=== PATIENT | female | born 1985 | race Caucasian/White ===

== ENCOUNTER 2016-12-26 10:11 | Emergency (ER) | payer MEDICAID ==
[2016-12-26 10:13] VITALS: BP 124/76; PULSE 89; RESP 15; TEMP 98.7; O2SAT 99
--- NOTE | 2016-12-26 10:28 | PD ---
HPI . right inner thigh abscess x 4-5 days Chief Complaint: Skin Problem Time Seen by Provider: 10:27 Travel History International Travel<30 days: No Contact w/Intl Traveler<30days: No Traveled to known affect area: No History of Present Illness HPI 31-year-old female here with complaints of right inner thigh abscess that has been present for the past 4-5 days. Patient says that all of a sudden she started developing swelling in her inner thigh. She does not recall any injury or insect bite. She denies any fever or chills. She is primarily Vietnamese- speaking and her sister is translating for her. She tells me the abscess caused some pain in her lower abdomen. [facility] Past Medical History Medical History: Denies Significant Hx Social History Alcohol Use: No Tobacco Use: No Substance Use: No Allergies-Medications (Allergen,Severity, Reaction): Coded Allergies: No Known Allergies (Unverified , 12/26/16) Reported Meds & Prescriptions Reported Meds & Active Scripts Active Bactrim DS (Sulfamethoxazole-Trimethoprim) 800-160 Mg Tab 1 Tab PO BID Review of Systems General / Constitutional: No: Fever Eyes: No: Visual changes HENT: No: Headaches Cardiovascular: No: Chest Pain or Discomfort Respiratory: No: Shortness of Breath Gastrointestinal: No: Abdominal Pain Genitourinary: No: Dysuria Musculoskeletal: No: Pain Skin: Positive Other (abscess right inner thigh), No Rash Neurologic: No: Weakness Psychiatric: No: Depression Endocrine: No: Polydipsia Hematologic/Lymphatic: No: Easy Bruising Physical Exam Narrative GENERAL: AAO x 3, no acute distress, Well-nourished, well-developed patient. SKIN: Warm and dry. No visible rashes or bruising. right inner thigh with 5 cm induration with zone of inflammation extending additional 3 cm, center with small 1 cm area of fluctuance. no visible drainage present HEAD: Normocephalic and atraumatic. EYES: No scleral icterus. No injection or drainage. ENT: No nasal drainage noted. Mucous membranes pink. Airway patent. NECK: Supple, trachea midline. No JVD. CARDIOVASCULAR: Regular rate and rhythm without murmurs, gallops, or rubs. RESPIRATORY: Breath sounds equal bilaterally. No accessory muscle use. No rhonchi or rales. GASTROINTESTINAL: Abdomen soft, non-tender, nondistended. no rebound or guarding EXTREMITIES: No cyanosis or edema. BACK: No obvious deformity. NEURO: CN II-12 intact, PSYCH: AAO x 3, normal affect. Data Data Last Documented VS Vital Signs Date Time Temp Pulse Resp B/P (MAP) Pulse Ox O2 Delivery O2 Flow Rate FiO2 12/26/16 10:13 98.7 89 15 124/76 (92) 99 Orders Orders Lidocaine 1% Inj (50 Ml) (Xylocaine 1% I (12/26/16 10:45) Ed Urine Pregnancytest Poc (12/26/16 10:35) Wound Culture And Gram Stain (12/26/16 10:37) Hydromorphone (Dilaudid) (12/26/16 11:00) MDM Medical Decision Making Medical Screen Exam Complete: Yes Emergency Medical Condition: Yes Medical Record Reviewed: Yes Differential Diagnosis Abscess, cellulitis, less likely shingles Narrative Course 31-year-old female here with a right thigh abscess. On examination she is abscess that is ready for incision and drainage. Dr. Caba has also assessed the patient. Patient gave verbal consent to abscess drainage. She tolerated without incident. Provide her with Bactrim to cover for MRSA. I recommend follow-up in 48 hours for recheck of abscess and packing change. We discussed the signs of infection and when to return to the ED earlier. Patient verbalized understanding of instructions, questions were answered, and thanked me for their care. I advised them if their condition worsens, please return to the nearest emergency room for further care. Procedures Procedure Narrative After the risks and benefits were discussed the following procedure was performed: Right inner thigh INCISION AND DRAINAGE OF ABSCESS: The area was prepped and was sterilely draped. A subcutaneous wheal of 1% % Xylocaine with a total number 8 mL was used to anesthetize the area. The area was properly anesthetized. A number 11 scalpel was used to make a 1 cm incision across the area of the abscess. Cultures were obtained. Loculations were broken up. The abscess was drained an irrigated with normal saline. Quarter inch iodoform packing was placed in the wound. Sterile dressing applied. Patient advised to have packing removed in two days. Diagnosis Primary Impression: Abscess of right thigh Patient Instructions: General Instructions Additional Instructions: Rest, hydrate. Do not change the dressing unless it becomes wet or soiled until wound recheck in 48 hours. You may bathe normally. Do not submerge the wound. Take the antibiotics as they are prescribed, even if your symptoms resolve during the course of treatment. Utilize [id number] pain medications, as described on the label, as needed. Return to the ED in 48 hours for packing removal and wound recheck. Follow-up with your primary care provider in next week. Return to the ED for any urgent or emergent medical condition. Watch for signs of infection: fever, redness, swelling, warmth, pus or drainage , red streaks around the cut, and increased pain from the area. Med/Other Pt SpecificInfo: Prescription(s) given Scripts Sulfamethoxazole-Trimethoprim (Bactrim DS) 800-160 Mg Tab 1 TAB PO BID for Infection, #20 TAB 0 Refills Prov: Samir Caba MD 12/26/16 Disposition: 01 DISCHARGE HOME Keila Mojica Dec 26, 2016 10:28
[2016-12-26] MEDS ORDERED: LIDOCAINE HCL 1% 50 ML VIAL INFIL ONE (10:45)
[2016-12-26] MEDS ORDERED: HYDROmorphone HCL 2 MG TAB PO ONE (11:00)
[2016-12-26] MEDS ORDERED: BACT800T5 PO (11:19)
== END 2016-12-26 11:34 | disposition home or self-care (01) ==
LOC: NEPD 10:11 → EDBD 10:11 → NEPD 11:34
DX: L02.415 Cutaneous abscess of right lower limb (principal); B99.8 Other infectious disease
CPT/HCPCS: 10061; 84703; 86403; 87070; 87185; 87205

== ENCOUNTER 2016-12-28 09:42 | Emergency (ER) | payer MEDICAID ==
[~2016-12-28] VITALS: Ht 154.9 cm; Wt 94.0 kg
[~2016-12-28 09:42] MED LIST: BACT800T5 PO
[2016-12-28 09:50] VITALS: BP 124/77; PULSE 82; RESP 15; TEMP 98.3; O2SAT 100
--- NOTE | 2016-12-28 10:28 | PD ---
HPI Chief Complaint: Wound/Suture/Staple Re-Check Time Seen by Provider: 10:28 Travel History International Travel<30 days: No Contact w/Intl Traveler<30days: No Traveled to known affect area: No History of Present Illness HPI 31-year-old female presents to the emergency department for abscess packing removal to her right upper inner thigh. I&D of the abscess was done on December 26. Patient denies fever, vomiting. Has been taking antibiotics as prescribed. Reports improvement in area. Reports continued pain. Has no other medical complaints. Symptoms are mild in severity. No other modifying factors or associated signs and symptoms. PFSH Past Medical History Diminished Hearing: No ?: Not Social History Alcohol Use: No Tobacco Use: No Substance Use: No Allergies-Medications (Allergen,Severity, Reaction): Coded Allergies: No Known Allergies (Unverified , 12/28/16) Reported Meds & Prescriptions Reported Meds & Active Scripts Active Bactrim DS (Sulfamethoxazole-Trimethoprim) 800-160 Mg Tab 1 Tab PO BID Review of Systems Except as stated in HPI: all other systems reviewed are Neg Physical Exam Narrative GENERAL: Well-nourished, well-developed female patient, in no acute distress; afebrile, nontoxic-appearing SKIN: There is an indurated area to the right upper inner thigh with iodoform packing intact. There is minimal erythema surrounding the area and minimal amount of purulent drainage noted. HEAD: Atraumatic. Normocephalic. EYES: Pupils equal and round. No scleral icterus. No injection or drainage. ENT: Mucosa pink and moist. Airway patent. NECK: Trachea midline. CARDIOVASCULAR: Regular rate. RESPIRATORY: No accessory muscle use. GASTROINTESTINAL: Obese. MUSCULOSKELETAL: No obvious deformities. No clubbing. No cyanosis. No edema. NEUROLOGICAL: Awake and alert. Oriented 3. No obvious cranial nerve deficits. Motor grossly within normal limits. Normal speech. PSYCHIATRIC: Appropriate mood and affect; insight and judgment normal. Data Data Last Documented VS Vital Signs Date Time Temp Pulse Resp B/P (MAP) Pulse Ox O2 Delivery O2 Flow Rate FiO2 12/28/16 09:50 98.3 82 15 124/77 (93) 100 MDM Medical Decision Making Medical Screen Exam Complete: Yes Emergency Medical Condition: Yes Medical Record Reviewed: Yes Differential Diagnosis Encounter for packing removal, abscess recheck, wound recheck, medical clearance Narrative Course 31-year-old female presents for pack removal of abscess that was I&D on December 26. Patient is afebrile and nontoxic-appearing. Denies fever, vomiting. Iodoform packing removed. Patient tolerated well. I reviewed the microbiology of the wound culture and it shows overgrowth of normal skin joesph. Patient to continue antibiotics as prescribed. Instructed patient to follow up with primary care provider. Patient verbalizes understanding and agreement with treatment plan. Patient is medically cleared and stable for discharge. Discussed reasons to return to the emergency department. Patient agrees with treatment plan. The patients vital signs are stable and the patient is stable for outpatient follow-up and treatment. Patient discharged home, stable and in no acute distress. Diagnosis Primary Impression: Encounter for abscess packing removal Referrals: [facility] Primary Care Physician Patient Instructions: Abscess (ED), Abscess Follow-up (ED), General Instructions Additional Instructions: Complete full course of antibiotics Warm compresses to the affected area Keep area clean and dry Ibuprofen or Tylenol as directed and as needed for pain and inflammation Follow-up with primary care provider Return to emergency department immediately with worsening of symptoms Med/Other Pt SpecificInfo: No Change to Meds, No Meds Exist/No RX given Disposition: DISCHARGE HOME Condition: Stable Neelam Winn Dec 28, 2016 10:28
== END 2016-12-28 10:50 | disposition home or self-care (01) ==
LOC: NEPK 09:42
DX: Z51.89 Encounter for other specified aftercare (principal); L02.415 Cutaneous abscess of right lower limb
CPT/HCPCS: 99281